=== PATIENT | male | born 1985 | race Caucasian/White ===

== ENCOUNTER 2020-12-16 18:07 | Inpatient (IN) | payer BC, OTHER ==
[2020-12-16 18:34] VITALS: BMI 22.7
[2020-12-16] MEDS ORDERED: ACETAMINOPHEN 325 MG TABLET (FP) PO PRN ×2 (19:00)
[2020-12-16] MEDS ORDERED: METHOCARBAMOL 500 MG TABLET PO PRN (19:00)
[2020-12-16] MEDS ORDERED: MAGNESIUM CITRATE 300 ML BOTTLE PO PRN (19:00)
[2020-12-16] MEDS ORDERED: IBUPROFEN 400 MG TABLET (FP) PO PRN (19:00)
[2020-12-16] MEDS ORDERED: MAG HYDROX/AL HYDROX/SIMETH 30 ML UNIT-DOSE CUP PO PRN (19:00)
[2020-12-16] MEDS ORDERED: BISMUTH SUBSALICYLATE 524 MG/30 ML UD PO PRN (19:00)
[2020-12-16] MEDS ORDERED: MAGNESIUM HYDROX 2400MG/30ML ORAL SUSPENSION 30 ML CUP PO PRN (19:00)
[2020-12-16] MEDS ORDERED: MENTHOL/PHENOL 1 EACH UD MM PRN (19:00)
[2020-12-16] MEDS ORDERED: ONDANSETRON *ODT* 4 MG TABLET SL PRN (19:00)
[2020-12-16] MEDS: diazePAM 5 MG TABLET PO PRN (20:03)
[2020-12-16] MEDS ORDERED: THIAMINE HCL 100 MG TABLET (FP) PO SCH (22:00)
[2020-12-16] MEDS ORDERED: MELATONIN 5 MG TABLETS PO SCH (22:00)
[2020-12-16] MEDS: hydrOXYzine PAMOATE 25 MG CAPSULE (FP) PO SCH (22:42)
[2020-12-16] MEDS: diazePAM 5 MG TABLET PO SCH (22:43)
[2020-12-17] MEDS: diazePAM 5 MG TABLET PO SCH ×2 (05:30→10:33)
[2020-12-17] MEDS: hydrOXYzine PAMOATE 25 MG CAPSULE (FP) PO SCH ×3 (05:31→13:52)
[2020-12-17] MEDS ORDERED: PRENATAL VITAMINS W/ FOLIC ACID TABLET (FP) PO SCH (10:00)
[2020-12-17 10:34] LABS: HEMATOCRIT 39.5 % (35.4-49); MCH 30.7 pg (25.7-33.7); MCHC 35.4 g/dl (32.0-35.9); MEAN CELL VOLUME 86.9 fl (80-96); MEAN PLT VOLUME 7.4 fl (7.5-11.1); PLATELET COUNT 80 K/MM3 (134-434); RBC 4.55 M/mm3 (4.00-5.60); RDW 15.5 % (11.9-15.9); WHITE BLOOD COUNT 3.6 K/mm3 (4.0-10.0)
[2020-12-17 10:36] LABS: ALBUMIN 3.9 g/dl (3.4-5.0); BLOOD UREA NITROGEN 6.7 mg/dL (7-18)
[2020-12-17 10:38] LABS: CALCIUM 8.6 mg/dL (8.5-10.1)
[2020-12-17 10:39] LABS: CREATININE 0.6 mg/dL (0.55-1.3)
[2020-12-17 10:40] LABS: TOT PROT 6.8 g/dl (6.4-8.2)
[2020-12-17 10:42] LABS: BILIRUBIN,TOTAL 1.7 mg/dL (0.2-1)
[2020-12-17] MEDS: diazePAM 5 MG TABLET PO PRN (13:34)
[2020-12-17 14:00] VITALS: BP 140/90; PULSE 73; TEMP 97.5
[2020-12-18] MEDS ORDERED: diazePAM 5 MG TABLET PO SCH (06:00)
[2020-12-19] MEDS ORDERED: diazePAM 5 MG TABLET PO SCH (06:00)
[2020-12-20] MEDS ORDERED: diazePAM 5 MG TABLET PO ONE (06:00)
== END 2020-12-17 14:00 | disposition left against medical advice (07) | DRG 894 ==
LOC: YASAS 18:07 → Y3N 18:38
PROVIDERS: ADMIT Allergy & Immunology; ATTEND Allergy & Immunology
PROC: HZ2ZZZZ Detoxification Services for Substance Abuse Treatment (ICD-10-PCS; principal; 2020-12-16)
DX: F10.230 Alcohol dependence with withdrawal, uncomplicated (principal); F15.20 Other stimulant dependence, uncomplicated; F10.220 Alcohol dependence with intoxication, uncomplicated; F41.8 Other specified anxiety disorders; F32.9 Major depressive disorder, single episode, unspecified; Z88.0 Allergy status to penicillin
CPT/HCPCS: 36415; 80053; 85027; 86780; 93005; 93010; C9803; Q0162; U0003; U0005